=== PATIENT | male | born 1965 | race Two or more races ===

== ENCOUNTER 2022-01-05 16:39 | Inpatient (IN) | payer MEDICAID, OTHER ==
[~2022-01-05] VITALS: Ht 172.7 cm; Wt 104.3 kg
[2022-01-05 18:12] LABS: Albumin 2.5 g/dL (3.4-5.0); BUN/Creatinine Ratio 17.2; Basophils # (auto) 0.1 10 ^3/uL (0-0.2); Basophils % (auto) 1.4 % (0.0-2.0); Calcium 8.3 mg/dL (8.5-10.1); Eosinophils # (auto) 0.1 10 ^3/uL (0-0.8); Eosinophils % (auto) 0.7 % (0.0-7.0); Hematocrit 38.2 % (41.0-53.0); Hemoglobin 13.2 g/dL (13.5-17.5); Lymphocytes # (auto) 1.8 10 ^3/uL (0.4-5.4); Lymphocytes % (auto) 17.9 % (10.0-50.0); Mean Corpuscular Hemoglobin 33.7 pg (28.0-32.0); Mean Corpuscular Hgb Conc. 34.5 g/dL (32.0-36.0); Mean Corpuscular Volume 97.9 fL (80.0-100.0); Monocytes # (auto) 0.7 10 ^3/uL (0-1.3); Monocytes % (auto) 7.6 % (0.0-12.0); Neutrophils # (auto) 7.1 10 ^3/uL (1.6-8.6); Neutrophils % (auto) 72.4 % (37.0-80.0); Potassium 4.3 mmol/L (3.5-5.1); White Blood Cell 9.8 10^3/uL (4.4-10.8)
[2022-01-05 18:15] LABS: Bilirubin, Total 1.3 mg/dL (0.2-1.0)
[2022-01-05] MEDS ORDERED: cefTRIAXone 1GM/50ML D5W 50 ML IV ONE (23:15)
[2022-01-05] MEDS ORDERED: PANTOPRAZOLE 40mg/50ML NS AE 50 ML IV ONE (23:15)
[2022-01-05] MEDS ORDERED: PANTOPRAZOLE 40 MG/10 ML VIAL INJ IV ONE (23:15)
[2022-01-05] MEDS ORDERED: IOHEXOL 300 MG/ML 100ML BOTTLE IJ ONE (23:54)
[2022-01-06] VITALS (7 sets, daily range): BP systolic 109–140; BP diastolic 68–88
[2022-01-06] MEDS ORDERED: MORPHINE SULFATE INJECTION 2 MG/ML SYRG IV PRN (00:45)
[2022-01-06] MEDS ORDERED: ONDANSETRON HCL 4 MG/2 ML VIAL IV PRN (00:45)
[2022-01-06] MEDS ORDERED: NITROGLYCERIN 0.4 MG SL TAB SL PRN (00:45)
[2022-01-06] MEDS ORDERED: DEXTROSE (50%) 50ML SYRG IV PRN (00:45)
[2022-01-06 01:31] LABS: Hematocrit 36.9 % (41.0-53.0); Hemoglobin 12.8 g/dL (13.5-17.5)
[2022-01-06 01:42] LABS: INR 1.46 (0.9-1.15); Partial Thromboplastin Time 29.1 sec (23.6-33.0)
[2022-01-06] MEDS: SODIUM CHLORIDE 0.9% 1,000 ML IV SCH ×2 (03:05→11:42)
[2022-01-06] MEDS: PANTOPRAZOLE 40mg/50ML NS AE 50 ML IV SCH ×3 (03:05→11:41)
[2022-01-06 03:23] LABS: Urine Bacteria FEW /hpf (None Seen); Urine Blood Negative /uL (Negative); Urine Specific Gravity 1.045 (1.001-1.035); Urine WBC <1 /hpf (0 - 3)
[2022-01-06] MEDS: InsuLIN REG 1unit/0.01ml Soln (100units/ml) SC SCH ×3 (06:00→17:31)
[2022-01-06] MEDS: ACCU-CHEK COMFORT CURVE STRIP VI SCH ×3 (06:00→17:21)
[2022-01-06] MEDS ORDERED: GLIP5TAB12 PO (18:34)
[2022-01-06] MEDS ORDERED: METF-370 PO (18:34)
[2022-01-06] MEDS ORDERED: PANTOPRAZOLE 40 MG/10 ML VIAL INJ IV SCH (22:00)
[2022-01-07] MEDS: SODIUM CHLORIDE 0.9% 1,000 ML IV SCH ×2 (00:36→12:20)
[2022-01-07 05:00] VITALS: BP 130/76
[2022-01-07 05:49] LABS: Basophils # (auto) 0.1 10 ^3/uL (0-0.2); Eosinophils # (auto) 0.1 10 ^3/uL (0-0.8); Monocytes # (auto) 0.5 10 ^3/uL (0-1.3); Neutrophils # (auto) 2.5 10 ^3/uL (1.6-8.6)
[2022-01-07 05:52] LABS: Basophils % (auto) 1.3 % (0.0-2.0); Eosinophils % (auto) 2.1 % (0.0-7.0); Hematocrit 29.6 % (41.0-53.0); Hemoglobin 10.7 g/dL (13.5-17.5); Lymphocytes # (auto) 1.9 10 ^3/uL (0.4-5.4); Lymphocytes % (auto) 37.1 % (10.0-50.0); Mean Corpuscular Hemoglobin 35.2 pg (28.0-32.0); Mean Corpuscular Hgb Conc. 36.3 g/dL (32.0-36.0); Mean Corpuscular Volume 97.1 fL (80.0-100.0); Monocytes % (auto) 10.4 % (0.0-12.0); Neutrophils % (auto) 49.1 % (37.0-80.0); Nucleated Red Blood Cells % 0.2 %; Red Blood Cells 3.05 10^6/uL (4.5-5.90); Red Cell Distribution Width 12.9 % (11.8-14.3)
[2022-01-07 06:25] LABS: Potassium 3.5 mmol/L (3.5-5.1)
[2022-01-07] MEDS: ACCU-CHEK COMFORT CURVE STRIP VI SCH ×4 (06:26→18:10)
[2022-01-07 06:32] LABS: Albumin 2.2 g/dL (3.4-5.0); BUN/Creatinine Ratio 30.1; Bilirubin, Total 1.4 mg/dL (0.2-1.0); Calcium 8.4 mg/dL (8.5-10.1); Total Protein 5.9 g/dL (6.4-8.2)
[2022-01-07] MEDS: InsuLIN REG 1unit/0.01ml Soln (100units/ml) SC SCH ×4 (06:33→18:35)
[2022-01-07] MEDS ORDERED: diphenhdrAMINE HCL 50 MG/1 ML VL ONE (08:25)
[2022-01-07] MEDS ORDERED: SODIUM CHLORIDE LOCK 10 ML ONE (08:25)
[2022-01-07] MEDS ORDERED: LIDOCAINE VISCOUS 2% 15ML UD ONE (08:25)
[2022-01-07 08:30] VITALS: BP 115/66
[2022-01-07 09:00] VITALS: BP 115/66
[2022-01-07] MEDS: fentaNYL CITRATE 100 MCG/2 ML VL ONE ×2 (09:12→09:15)
[2022-01-07] MEDS: MIDAZOLAM HCL 5 MG/ML-1ML VIAL ONE ×2 (09:12→09:15)
[2022-01-07] MEDS ORDERED: PANTOPRAZOLE 40 MG TAB PO SCH (10:00)
[2022-01-07] MEDS: SUCRALFATE 1 GM/10 ML ORAL SUSP PO SCH ×2 (11:18→17:14)
[2022-01-07 13:00] VITALS: BP 120/71
[2022-01-07 17:00] VITALS: BP 118/68
[2022-01-07] MEDS ORDERED: SUCR1SUS10 PO (17:19)
[2022-01-07] MEDS ORDERED: PANT40T PO (17:19)
[2022-01-07 18:39] VITALS: BP 118/68
== END 2022-01-07 20:45 | disposition home health service (06) | DRG 241 ==
LOC: EDBD 16:39 → ER 16:39 → TELE 01-06 00:37 → TELE-WESTW 01-06 02:01
PROVIDERS: ADMIT Nurse Practitioner; ATTEND Internal Medicine
PROC: 0DJ08ZZ Inspection of Upper Intestinal Tract, Via Natural or Artificial Opening Endoscopic (ICD-10-PCS; principal; 2022-01-07 09:08)
DX: K29.01 Acute gastritis with bleeding (principal); D64.9 Anemia, unspecified; E11.9 Type 2 diabetes mellitus without complications; I10 Essential (primary) hypertension; R74.01 Elevation of levels of liver transaminase levels; Z20.822 Contact with and (suspected) exposure to COVID-19; K29.81 Duodenitis with bleeding; K26.4 Chronic or unspecified duodenal ulcer with hemorrhage; Z83.3 Family history of diabetes mellitus; Z85.46 Personal history of malignant neoplasm of prostate; Z88.8 Allergy status to other drugs, medicaments and biological substances
CPT/HCPCS: 36415; 71046; 80053; 81001; 82270; 82962; 83690; 83735; 84484; 85014; 85018; 85025; 85610; 85730; 86850; 86900; 86901; 96365; 96375; C9113; G0378; J0696; J1815; J2250